=== PATIENT | female | born 1940 | race Two or more races ===

== ENCOUNTER 2025-07-16 10:36 | Emergency (ER) | payer MEDICARE, OTHER ==
[~2025-07-16] VITALS: Ht 165.1 cm; Wt 65.9 kg
[~2025-07-16 10:36] MED LIST: METO50TA16 PO; NITR0.4T51 SL; SYN0.088T PO; indapamide PO
[2025-07-16 12:36] LABS: MEAN PLATELET VOLUME 8.7 FL (7.4-10.4); RED CELL DISTRIBUTION WIDTH 14.3 % (11.5-14.5)
[2025-07-16 12:45] LABS: CREATININE 0.58 MG/DL (0.40-0.90); TOTAL CARBON DIOXIDE 25.9 MMOL/L (24-32); eCRCL 64 ML/MIN; eGFR > 90 ML/MIN
[2025-07-16 12:48] LABS: APTT 27 SECONDS (22-32); INR 1.0 INR
--- NOTE | 2025-07-16 12:53 | RADIOLOGY REPORT ---
CT CT HEAD Indication: dizzy EXAM DATE: 07/16/2025 12:33 PM COMPARISON: None TECHNIQUE: CT of the head without intravenous contrast. RADIATION DOSE: CTDIvol: 60 mGy, DLP: 1130 mGy*cm FINDINGS: There is no intracranial hemorrhage. There is no extra-axial fluid, mass, mass effect or midline shift. The ventricles are midline and normal in size. Basilar cisterns are patent. There are mild periventricular and subcortical white matter chronic microvascular ischemic changes. Mild global cerebral volume loss. The paranasal sinuses and mastoids are well-pneumatized. Imaged portion of the orbits are unremarkable. IMPRESSION: No intracranial hemorrhage or mass effect. Mild chronic microvascular ischemic changes. Mild global cerebral volume loss.
--- NOTE | 2025-07-16 12:58 | ELECTROCARDIOGRAPH REPORT ---
[facility] Test Date: 2025-07-16 Test Time: 12:54:52 Pat Name: VALERIANO EMERY Department: [facility]-ER Patient ID: [facility]-[id number] Room: Gender: F Dungeon Master: : [id number] Requested By: CONOR HERRERA Order Number: [id number] Reading MD: Measurements Intervals [place] Rate: 67 P: 32 SD: 152 QRS: -6 QRSD: 83 T: 24 QT: 409 QTc: 432 Interpretive Statements Sinus arrhythmia Low voltage, precordial leads Left ventricular hypertrophy Please click the below link to view image of tracing.
[2025-07-16] MEDS: ketorolac trometh 30MG/ML vial 30 MG/ML VIAL IM ONE (13:34)
[2025-07-16] MEDS ORDERED: MECL-226 PO (13:50)
--- NOTE | 2025-07-16 13:50 | Physician Documentation ---
History of Present Illness ~ Chief Complaint: Dizziness Stated Complaint: DIZZINESS Time Seen by MD: 12:14 Primary Medical Doctor: AURORA YANES 85-year-old female presents to the ED with a complaint of dizziness. She states that she has been prescribed Antivert before but today it was not working. She denies any focal deficit deficits denies any chest pain. Denies any shortness of breath as well. Reports it is worse when she sits up from lying down. Day of Onset: Jul 16, 2025 Medication Reconciliation Allergies: Coded Allergies: No Known Allergies (Unverified , 07/16/25) Scheduled Levothyroxine Sodium* (Synthroid*), 88 MCG PO DAILY, (Reported) Metoprolol Tartrate (Metoprolol Tartrate), 25 MG PO BID, (Reported) [indapamide], 1.25 MG PO DAILY, (Reported) Scheduled PRN Nitroglycerin SL* (Nitrostat SL*), 0.4 MG SL Q5MIN PRN for Chest pain Q5min PRNx3-call MD, (Reported) Past Medical History Past Medical History: Hypertension, Hypothyroidism Smoking Status: Never smoker Alcohol Use: None Lives with: Spouse Lives In: Home Review of Systems All Other Systems at this time: Reviewed and Negative ROS As stated above in the HPI, otherwise all systems are reviewed and negative. Physical Exam Vital Signs: Temperature: 97.9, Source: Temporal, Heart Rate: 58, Respiratory Rate: 16, BP: 170/71, Pulse Oximetry: 95, Weight: 65.910 Physical Exam General: Alert, no apparent distress. HEENT: PERRL, EOMI, no injection, moist mucous membranes. No horizontal gaze nystagmus Neck: Full range of motion. Respiratory: Lungs clear, no respiratory distress. Cardiovascular: Regular rate and rhythm, no murmurs. Gastrointestinal: Soft, nontender, nondistended. Bowels sounds present. Neurologic: Oriented x4. Psychiatric: Normal mood and affect. Skin: Normal color, warm and dry. No edema, no ecchymosis. Progress Results/Orders Results/Orders Orders - CONOR HERRERA NP Ct Head (07/16/25 12:14) Monitor (07/16/25 12:14) * Orthostatic Vitals* Q12H (07/16/25 13:15) Completed Orders - JAVIER,CONOR H POWDER WORKER TNT Ct Head (07/16/25 12:14) Cbc/Diff (07/16/25 12:14) Electrocardiogram (07/16/25 12:14) BMP (07/16/25 12:14) PTT (07/16/25 12:14) Pt Inr (07/16/25 12:14) Ketorolac Trometh 30mg/Ml Vial (Toradol (07/16/25 13:15) Meclizine Tablets (Antivert Tablet) (07/16/25 13:15) Medications Received in ER Medications (Trade) Dose Ordered Sig/Rosie Route PRN Reason Start Time Stop Time Status Last Admin Dose Admin (Toradol inj. 30mg/ml) 15 mg ONCE ONCE IM 07/16/25 13:15 07/16/25 13:16 DC 07/16/25 13:34 15 MG (Antivert tablet) 12.5 mg ONCE ONCE PO 07/16/25 13:15 07/16/25 13:16 DC 07/16/25 13:34 12.5 MG Vital Signs 07/16/25 07/16/25 07/16/25 07/16/25 10:46 11:36 11:42 13:34 Temp 97.9 Pulse 70 59 58 Resp 18 17 17 16 B/P (MAP) 178/63 163/69 (100) 170/71 (104) Pulse Ox 99 95 95 Laboratory Tests Test 07/16/25 11:40 07/16/25 12:28 Glucometer 112 H White Blood Count 6.8 Red Blood Count 4.55 Hemoglobin 14.3 Hematocrit 43.6 Mean Corpuscular Volume 95.8 Mean Corpuscular Hemoglobin 31.5 H Mean Corpuscular Hemoglobin Concent 32.9 L Red Cell Distribution Width 14.3 Platelet Count 298 Mean Platelet Volume 8.7 Neutrophils (%) (Auto) 62.4 Lymphocytes (%) (Auto) 29.0 Monocytes (%) (Auto) 5.6 Eosinophils (%) (Auto) 2.4 Basophils (%) (Auto) 0.6 Neutrophils # (Auto) 4.3 Lymphocytes # (Auto) 2.0 Monocytes # (Auto) 0.4 Eosinophils # (Auto) 0.2 Basophils # (Auto) 0.0 CBC Comment Prothrombin Time 10.2 INR International Normalized Ratio 1.0 Activated Partial Thromboplast Time 27 Coagulation Comments Sodium Level 142 Potassium Level 4.1 Chloride Level 106 Carbon Dioxide Level 25.9 Anion Gap 10 Blood Urea Nitrogen 13 Creatinine 0.58 Estimated GFR/1.73 m2 > 90 BUN/Creatinine Ratio 22.4 H Glucose Level 110 H Calcium Level 9.8 Albumin 4.1 Chemistry Comments Medical Decision Making Findings And CT was unremarkable for any intracranial abnormalities. She shows no signs of focal deficits and presents with a all the clinical and a indications for BPH. Going to give her Toradol for headache and Antivert for her symptoms., Differential Dx:Considerations: Include: anemia, CVA, dehydration, dysrhythmia, electrolyte imbalance, encephalopathy, Guillain-[place], hypoglycemia, hypotension, hypovolemia, labyrinthitis, Meniere's disease, myasathenia gravis, myocardial infarction, pulmonary embolus, renal failure, respiratory failure, TIA, VBI, vertigo central, vertigo peripheral, vestibular neuronitis, other Departure Disposition: HOME / SELF CARE / HOMELESS Impression: Primary Impression: Vertigo Additional Impression: Dizziness Discharge Instructions: Dizziness, Vertigo Referrals: NO PRIMARY CARE PROVIDER (PCP) Prescriptions Meclizine HCl (Meclizine HCl) 12.5 Mg Tablet 1 TAB PO Q8H for dizziness for 10 Days, #30 TAB 0 Refills Prov: CONOR HERRERA NP 07/16/25 Signature Scribe Signature: f Attestation: Scribed for Conor Herrera Engineering Specialist Technician by Conor Go NP . 07/16/25 13:50 CONOR HERRERA NP Jul 16, 2025 13:50
[2025-07-16 14:10] VITALS: BP 154/82; PULSE 90; RESP 16; TEMP 97.9; O2SAT 99
== END 2025-07-16 14:12 | disposition home or self-care (01) ==
LOC: ER 10:37
DX: R42 Dizziness and giddiness (principal); I10 Essential (primary) hypertension; E03.9 Hypothyroidism, unspecified; Z79.899 Other long term (current) drug therapy; R06.02 Shortness of breath
CPT/HCPCS: 36415; 70450; 80048; 82948; 85025; 85610; 85730; 93005; 96372; 99285; J1885; J8597